=== PATIENT | male | born 1955 | race Caucasian/White ===

== ENCOUNTER 2017-03-19 12:56 | Observation (INO) | payer BC, OTHER ==
[2017-03-19] MEDS ORDERED: SODIUM CHLORIDE 1,000 ML IV STA (13:49)
[2017-03-19 14:17] LABS: BASOPHIL 1.5 % (0-2.0); EOSINOPHIL 0.9 % (0-4.5); MCH 28.7 pg (25.7-33.7); MCHC 31.3 g/dl (32.0-35.9); MEAN CELL VOLUME 91.7 fl (80-96); MEAN PLT VOLUME 9.1 fl (7.5-11.1); NEUTROPHILS 71.2 % (42.8-82.8); PLATELET COUNT 286 K/MM3 (134-434); RDW 13.6 % (11.9-15.9); WHITE BLOOD COUNT 7.2 K/mm3 (4.0-10.0)
--- NOTE | 2017-03-19 14:31 | EKG ---
Test Reason : Blood Pressure : / mmHG Vent. Rate : 084 BPM Atrial Rate : 084 BPM P-R Int : 158 ms QRS Dur : 092 ms QT Int : 358 ms P-R-T Axes : 033 -16 017 degrees QTc Int : 423 ms NORMAL SINUS RHYTHM BASE LINE ARTIFACTS NORMAL ECG WHEN COMPARED WITH ECG OF 28-AUG-1999 15:02, NO SIGNIFICANT CHANGE WAS FOUND REPEAT EKG IF CLINICALLY INDICATED Confirmed by SHEEBA JANSEN MD ([id number]) on 03/19/2017 2:31:25 PM Referred By: Confirmed By:SHEEBA JANSEN MD
[2017-03-19 14:34] LABS: INR 1.06 (0.82-1.09); PROTHROMBIN TIME (PATIENT) 11.7 SEC (9.98-11.88)
--- NOTE | 2017-03-19 14:45 | PDOC ---
History of Present Illness - General Chief Complaint: Rectal Bleed Stated Complaint: RECTAL BLEEDING Time Seen by Provider: 03/19/17 13:35 History Source: Patient Exam Limitations: No Limitations - History of Present Illness Travel History: No Initial Comments: 03/19/17 14:00 61-year-old male presents to the ED with complaints of generalized weakness, mild dizziness and shortness of breath since this morning. Patient states had a colonoscopy done yesterday by Dr. Stinson secondary to rectal bleeding which she was told he had hemorrhoid that required banding and will be removed at a later date once patient stabilizes from his low H&H and symptoms. As the patient Dr. Houston patient's PCP told him to come to the ER for further evaluation since his H&H was at 7 Which which has decreased over the past 2 months from 11 Timing/Duration: reports: intermittent Quality: reports: moderate Aggravating Factors: improves with: None Alleviating Factors: improves with: None Past History - Travel Traveled outside of the country in the last 30 days: No - Past Medical History Allergies/Adverse Reactions: Allergies Allergy/AdvReac Type Severity Reaction Status Date / Time No Known Allergies Allergy Verified 03/19/17 14:13 Home Medications: Ambulatory Orders Bimatoprost [Lumigan] 1 drop IO DAILY 03/19/17 Candesartan Cilexetil [Atacand (Nf) -] 8 mg PO DAILY 03/19/17 Folic Acid - 1 mg PO DAILY 03/19/17 Pantoprazole Sodium [Protonix] 40 mg PO HS 03/19/17 Asthma: Yes GI Disorders: Yes (GERD) HTN: Yes - Surgical History Abdominal Surgery: Yes (Left ingunal Hernia Repair) - Immunization History Immunization Up to Date: Yes - Suicide/Smoking/Psychosocial Hx Smoking History: Former smoker Have you smoked in the past 12 months: No If you are a former smoker, when did you quit?: 33years Information on smoking cessation initiated: Yes Hx Alcohol Use: No Drug/Substance Use Hx: No Substance Use Type: None Patient Lives Alone: No Lives with/in: spouse/SO Review of Systems - Review of Systems Able to Perform ROS?: Yes Constitutional: Yes: Weakness HEENTM: No: Symptoms Reported Respiratory: No: Symptoms reported Cardiac (ROS): Yes: Lightheadedness ABD/GI: No: Symptoms Reported : No: Symptoms Reported Musculoskeletal: No: Symptoms Reported Integumentary: No: Symptoms Reported Neurological: Yes: Weakness, Dizziness Hematologic/Lymphatic: No: Symptoms Reported *Physical Exam - Vital Signs Last Vital Signs Temp Pulse Resp BP Pulse Ox 98.8 F 100 H 16 130/74 98 03/19/17 13:09 03/19/17 13:09 03/19/17 13:09 03/19/17 13:09 03/19/17 13:09 - Physical Exam General Appearance: Yes: Nourished, Appropriately Dressed. No: Apparent Distress HEENT: positive: EOMI, MARGARITA. negative: Pale Conjunctivae Neck: positive: Supple Respiratory/Chest: positive: Lungs Clear, Normal Breath Sounds. negative: Respiratory Distress, Accessory Muscle Use Cardiovascular: positive: Regular Rhythm, Tachycardia. negative: Murmur Gastrointestinal/Abdominal: positive: Normal Bowel Sounds, Soft. negative: Distended, Tenderness Rectal Exam: positive: other (brown stool on withdrawn glove) Extremity: positive: Normal Capillary Refill Integumentary: positive: Dry, Warm, Pale Neurologic: positive: Normal Mood/Affect, Motor Strength 5/5 (ambulatory) Heart Score/ECG Review - ECG Intrepretation Rhythm: Regular Rhythm (rate 84, nsr) ED Treatment Course - LABORATORY CBC & Chemistry Diagram: 03/19/17 14:08 03/19/17 14:08 - ADDITIONAL ORDERS Additional order review: Laboratory Results 03/19/17 14:08 Stool Occult Blood Negative 03/19/17 14:08 RBC 3.11 L MCV 91.7 MCHC 31.3 L RDW 13.6 MPV 9.1 Neutrophils % 71.2 Lymphocytes % 16.2 Monocytes % 10.2 Eosinophils % 0.9 Basophils % 1.5 Medical Decision Making - Medical Decision Making 03/19/17 14:05 Patient here for symptomatic anemia. Patient's last recorded H&H was [address] Oleary who sent patient in for evaluation. Patient status post colonoscopy yesterday done by Dr. Stinson. Patient exam appears pale slightly tachycardic and weak. Patient ordered for type and screen, coags labs IV fluids and EKG. 03/19/17 14:47 Laboratory Tests 03/19/17 03/19/17 14:08 14:08 WBC 7.2 Hgb 8.9 L Hct 28.5 L Plt Count 286 Neutrophils % 71.2 Stool Occult Blood Negative 03/19/17 15:[address] Houston who wants patient to be admitted for observation and to receive 1 unit of blood and to consult Dr. Stinson. He states will text Dr. farr for admission 03/19/17 15:37 Laboratory Tests 03/19/17 03/19/17 14:08 14:08 Sodium 140 Potassium 4.2 Chloride 106 Carbon Dioxide 24 Anion Gap 10 BUN 12 Creatinine 1.3 Random Glucose 112 H Calcium 9.1 Total Bilirubin 0.2 AST 11 L ALT 23 Alkaline Phosphatase 102 Total Protein 7.2 Albumin 4.1 Stool Occult Blood Negative *DC/Admit/Observation/Transfer Diagnosis at time of Disposition: Secondary anemia - Discharge Dispostion Admit: Yes
[2017-03-19 14:47] LABS: ALBUMIN 4.1 g/dl (3.4-5.0); ANION GAP 10 (8-16); BILIRUBIN,TOTAL 0.2 mg/dL (0.2-1.0); CALCIUM 9.1 mg/dL (8.5-10.1); CO2 24 mmol/L (21-32); CREATININE 1.3 mg/dL (0.7-1.3); GLUCOSE,RANDOM 112 mg/dL (74-106); SGOT/AST 11 U/L (15-37); SGPT/ALT 23 U/L (12-78)
[2017-03-19 14:48] LABS: ALK PHOS 102 U/L (45-117); TOT PROT 7.2 g/dl (6.4-8.2)
[2017-03-19] MEDS ORDERED: ONDANSETRON 4 MG/2 ML VIAL IVPB PRN (16:32)
[2017-03-19] MEDS ORDERED: ACETAMINOPHEN 325 MG TABLET (FP) PO PRN (16:32)
--- NOTE | 2017-03-19 16:41 | HP ---
Admitting History and Physical - Primary Care Physician PCP: John Houston - Admission Chief Complaint: My hemoglobin was low History of Present Illness: Mr Hirsch is a pleasant 61 year old male who comes in after having recurrent bright red blood per rectum. His Hgb is normally between 11-12, however over the past 3 weeks he had bleeding with bowel movements. He underwent colonoscopy with Dr Stinson yesterday and was found to have a large internal hemorrhoid. He was planning on having it banded in 4 weeks after his hemoglobin increased with iron supplementation. However he got up this morning and had a large amount of bleeding with clots. He was lightheaded without passing out. He had some shortness of breath with this. He had generalized weakness and fatigue. He denies fevers, chills, chest pain, abdominal pain, nausea, vomiting, difficulty or pain on urination, or swelling. He is still feeling very fatigued. History Source: Patient Limitations to Obtaining History: No Limitations - Past Medical History Cardiovascular: Yes: HTN Gastrointestinal: Yes: GERD Additional Past Medical History: glaucoma - Past Surgical History Past Surgical History: Yes: Hernia Repair - Smoking History Smoking history: Former smoker Have you smoked in the past 12 months: No If you are a former smoker, when did you quit?: 33years - Alcohol/Substance Use Hx Alcohol Use: No History of Substance Use: reports: None - Social History Usual Living Arrangement: Yes: With Spouse ADL: Independent History of Recent Travel: No Home Medications - Allergies Allergies/Adverse Reactions: Allergies Allergy/AdvReac Type Severity Reaction Status Date / Time No Known Allergies Allergy Verified 03/19/17 14:13 - Home Medications Home Medications: Ambulatory Orders Bimatoprost [Lumigan] 1 drop IO DAILY 03/19/17 Candesartan Cilexetil [Atacand (Nf) -] 8 mg PO DAILY 03/19/17 Folic Acid - 1 mg PO DAILY 03/19/17 Pantoprazole Sodium [Protonix] 40 mg PO HS 03/19/17 Family Disease History - Family Disease History Family Disease History: CA: Father (prostate cancer), Other: Mother ( at age 93) Review of Systems Findings/Remarks: Full review of systems obtained, as per HPI and otherwise negative Physical Examination Vital Signs: Vital Signs Temperature 37.1 C 03/19/17 13:09 Pulse Rate 100 H 03/19/17 13:09 Respiratory Rate 16 03/19/17 13:09 Blood Pressure 130/74 03/19/17 13:09 O2 Sat by Pulse Oximetry (%) 98 03/19/17 13:09 Constitutional: Yes: Well Nourished, No Distress, Calm Eyes: Yes: Conjunctiva Clear, EOM Intact, PERRL Cardiovascular: Yes: Tachycardia. No: Gallop, Murmur, Rub Respiratory: Yes: Regular, CTA Bilaterally. No: Rales, Rhonchi, Wheezes Gastrointestinal: Yes: Normal Bowel Sounds, Soft. No: Distention, Tenderness Extremities: Yes: WNL Edema: No Labs: Laboratory Results - last 24 hr 03/19/17 03/19/17 03/19/17 13:48 14:08 14:08 WBC 7.2 RBC 3.11 L Hgb 8.9 L Hct 28.5 L MCV 91.7 MCH 28.7 MCHC 31.3 L RDW 13.6 Plt Count 286 MPV 9.1 Neutrophils % 71.2 Lymphocytes % 16.2 Monocytes % 10.2 Eosinophils % 0.9 Basophils % 1.5 PT with INR 11.70 INR 1.06 Sodium Potassium Chloride Carbon Dioxide Anion Gap BUN Creatinine Creat Clearance w eGFR Random Glucose Calcium Total Bilirubin AST ALT Alkaline Phosphatase Total Protein Albumin Stool Occult Blood Blood Type O POSITIVE Antibody Screen Negative Crossmatch See Detail 03/19/17 03/19/17 14:08 14:08 WBC RBC Hgb Hct MCV MCH MCHC RDW Plt Count MPV Neutrophils % Lymphocytes % Monocytes % Eosinophils % Basophils % PT with INR INR Sodium 140 Potassium 4.2 Chloride 106 Carbon Dioxide 24 Anion Gap 10 BUN 12 Creatinine 1.3 Creat Clearance w eGFR 55.94 Random Glucose 112 H Calcium 9.1 Total Bilirubin 0.2 AST 11 L ALT 23 Alkaline Phosphatase 102 Total Protein 7.2 Albumin 4.1 Stool Occult Blood Negative Blood Type Antibody Screen Crossmatch Problem List - Problems (1) Symptomatic anemia Assessment/Plan: -secondary to acute blood loss anemia -admit under observation -transfuse 1 unit -recheck in am Code(s): D64.9 - ANEMIA, UNSPECIFIED (2) GI bleed Assessment/Plan: -secondary to hemorrhoidal bleed -GI to evaluate Code(s): K92.2 - GASTROINTESTINAL HEMORRHAGE, UNSPECIFIED (3) HTN (hypertension) Assessment/Plan: -continue atacand (or formulary substitution) -monitor Code(s): I10 - ESSENTIAL (PRIMARY) HYPERTENSION (4) GERD (gastroesophageal reflux disease) Assessment/Plan: -continue protonix Code(s): K21.9 - GASTRO-ESOPHAGEAL REFLUX DISEASE WITHOUT ESOPHAGITIS (5) Glaucoma Assessment/Plan: -continue lumigan Code(s): H40.9 - UNSPECIFIED GLAUCOMA
[2017-03-19 21:16] VITALS: BMI 36.5
[2017-03-19] MEDS: DOCUSATE SODIUM 100 MG CAPSULE (FP) PO SCH (21:27)
[2017-03-19] MEDS ORDERED: PANTOPRAZOLE 40 MG TABLET (FP) PO SCH (22:00)
[2017-03-20 08:10] LABS: BASOPHIL 0.7 % (0-2.0); EOSINOPHIL 2.3 % (0-4.5); MCH 29.2 pg (25.7-33.7); MCHC 32.5 g/dl (32.0-35.9); MEAN CELL VOLUME 90.1 fl (80-96); MEAN PLT VOLUME 9.1 fl (7.5-11.1); NEUTROPHILS 66.8 % (42.8-82.8); PLATELET COUNT 220 K/MM3 (134-434); RDW 13.6 % (11.9-15.9); WHITE BLOOD COUNT 5.5 K/mm3 (4.0-10.0)
[2017-03-20 08:38] LABS: ANION GAP 8 (8-16); CALCIUM 8.8 mg/dL (8.5-10.1); CO2 26 mmol/L (21-32); CREATININE 1.3 mg/dL (0.7-1.3); GLUCOSE,RANDOM 103 mg/dL (74-106); MAGNESIUM 2.1 mg/dL (1.8-2.4)
[2017-03-20] MEDS ORDERED: POLYETHYLENE GLYCOL 3350 119 GM BTL PO SCH (10:00)
[2017-03-20] MEDS ORDERED: CANDESARTAN CILEXETIL 8 MG PO SCH (10:00)
[2017-03-20] MEDS ORDERED: PATIENT'S OWN MEDICATION (NON-FORMULARY) (Bimatoprost [Lumigan] 1 DROP) IO SCH (10:00)
[2017-03-20] MEDS ORDERED: VALSARTAN 80 MG TABLET (UD) PO SCH (10:00)
[2017-03-20] MEDS: DOCUSATE SODIUM 100 MG CAPSULE (FP) PO SCH ×2 (10:50→10:55)
[2017-03-20] MEDS: FOLIC ACID 1 MG TABLET (FP) PO SCH ×2 (10:53→10:55)
--- NOTE | 2017-03-20 12:02 | DS ---
Physical Examination Vital Signs: Vital Signs Temperature 36.6 C 03/20/17 06:00 Pulse Rate 69 03/20/17 06:00 Respiratory Rate 16 03/20/17 06:00 Blood Pressure 136/78 03/20/17 06:00 O2 Sat by Pulse Oximetry (%) 96 03/20/17 00:35 Labs: CBC, BMP 03/20/17 06:30 03/20/17 06:30 Discharge Summary Reason For Visit: SECONDARY ANEMIA Current Active Problems GERD (gastroesophageal reflux disease) (Acute) GI bleed (Acute) Glaucoma (Acute) HTN (hypertension) (Acute) Symptomatic anemia (Acute) Condition: Good - Instructions Diet, Activity, Other Instructions: resume previous diet and activity Referrals: John Houston MD [Primary Care Provider] - Yogi Stinson MD [Staff Physician] - Disposition: HOME - Home Medications Comprehensive Discharge Medication List: Ambulatory Orders Bimatoprost [Lumigan] 1 drop IO DAILY 03/19/17 Candesartan Cilexetil [Atacand -] 8 mg PO DAILY 03/19/17 Folic Acid - 1 mg PO DAILY 03/19/17 Pantoprazole Sodium [Protonix] 40 mg PO HS 03/19/17
--- NOTE | 2017-03-20 15:49 | CON.GI ---
Consult Consult Specialty:: GI for Dr. Torres Referred by:: Dr. Lazo Reason for Consultation:: Rectal bleeding - History of Present Illness Chief Complaint: I was having rectal bleeding History of Present Illness: 61M addmitted for evaluation of rectal bleeding. He had a colonoscopy with Dr. Torres this past saturday and was advised that he has a large internal hemorrhoid. He alludes to Dr. torres telling him that he wanted to perform hemorrhoidal banding once his h/h improved. He has a history of anemia as well. He came to the ER last night because he again experienced rectal bleeding after a bowel movement and felt diaphoretic. He was given 1 U PRBC. Hgb last night was 8.9 and [address] Torres's office note alludes to Mr. Rooney having a recent Hgb of 7.8 with elevated MCV of 94. The last episode of bleeding was this morning, muuch kess than previously noted and always described as bright red. there is no passage of clots and he sometimes feels the hemorrhoids "come out" requiring him to "sit on something hard to push them back in". He denies abdominal pain, neausea, vomiting, current lightheadedness / shortness of breath / chest pain. - History Source History Provided By: Patient, Family Member, Medical Record Limitations to Obtaining History: No Limitations - Past Medical History Cardio/Vascular: Yes: HTN Pulmonary: Yes: Asthma, Bronchitis Gastrointestinal: Yes: GERD, GI Bleed, Hemorrhoids, Other (anal fissure, ) Additional Medical History: macular degeneration, churg-sondra vasculitis, herniated disc - Past Surgical History Past Surgical History: Yes: Hernia Repair (LIH repair) Additional Surgical History: left retinal tear, chalazion removal - Alcohol/Substance Use Hx Alcohol Use: No History of Substance Use: reports: None - Smoking History Smoking history: Former smoker Have you smoked in the past 12 months: No If you are a former smoker, when did you quit?: 33years - Social History ADL: Independent Occupation: retired [employer] Place of : [facility] History of Recent Travel: No Home Medications - Allergies Allergies/Adverse Reactions: Allergies Allergy/AdvReac Type Severity Reaction Status Date / Time No Known Allergies Allergy Verified 03/19/17 14:13 - Home Medications Home Medications: Ambulatory Orders Bimatoprost [Lumigan] 1 drop IO DAILY 03/19/17 Candesartan Cilexetil [Atacand -] 8 mg PO DAILY 03/19/17 Folic Acid - 1 mg PO DAILY 03/19/17 Pantoprazole Sodium [Protonix] 40 mg PO HS 03/19/17 Family Disease History - Family Disease History Family Disease History: CA: Father (prostate cancer), Other: Mother ( at age 93) Other Family History: Maternal uncle: liver cancer, maternal aunt: colon cancer , maternal aunt: stomach cancer, paternal uncle: pancreatic cancer Review of Systems - Review of Systems Constitutional: denies: Fever Cardiovascular: denies: Chest Pain, Shortness of Breath Gastrointestinal: denies: Abdominal Pain, Constipation, Diarrhea Physical Exam-GI Vital Signs: Vital Signs Temperature 98.1 F 03/20/17 14:00 Pulse Rate 74 03/20/17 14:00 Respiratory Rate 22 03/20/17 14:00 Blood Pressure 100/60 03/20/17 14:00 O2 Sat by Pulse Oximetry (%) 96 03/20/17 08:00 Constitutional: Yes: Calm Eyes: No: Sclera Icterus Cardiovascular: Yes: Regular Rate and Rhythm. No: Murmur Respiratory: Yes: CTA Bilaterally Gastrointestinal Inspection: No: Distention ...Auscultate: Yes: Normoactive Bowel Sounds ...Palpate: No: Hepatomegaly, Splenomegaly, Tenderness ...Percussion: No: Tympanitic ...Rectal Exam: Yes: Other (+ internal hemorrhoids, no blood / stool) Edema: No Neurological: Yes: Alert, Oriented Labs: CBC, BMP 03/20/17 06:30 03/20/17 06:30 INR, PTT INR 1.06 (0.82-1.09) 03/19/17 14:08 Hepatic Panel Total Bilirubin 0.2 mg/dL (0.2-1.0) 03/19/17 14:08 AST 11 U/L (15-37) L 03/19/17 14:08 ALT 23 U/L (12-78) 03/19/17 14:08 Alkaline Phosphatase 102 U/L (45-117) 03/19/17 14:08 Albumin 4.1 g/dl (3.4-5.0) 03/19/17 14:08 Problem List - Problems (1) GI bleed Assessment/Plan: Rectal bleeding: suspect to be internal hemorrhoid in nature without overt bleeding currently No severe tenderness upon insertion of finger into anal canal that would be suggestive of significant anal fissure Advised the following: Anusol HC suppository 1 NV daily to twice daily Stool softener as needed as opposed to standing as Mr. Rooney denies any persistent constipation Advised Mr. rooney and his to call Dr. Torres's office to arrange follow-up to discuss further treatment of hemorrhoids ? previous macrocytic component of anemia as well. ? alternate concomitant hematologic process If persistent worsened rectal bleeding that he seek evaluation in ER setting Code(s): K92.2 - GASTROINTESTINAL HEMORRHAGE, UNSPECIFIED
[2017-03-20] MEDS ORDERED: HYDROCORTISONE ACETATE 25 MG/SUPP.RECT RC ONE (16:30)
[2017-03-20 17:49] VITALS: BP 101/58; PULSE 71; TEMP 98.5
[2017-03-20] MEDS ORDERED: HYDROCORTISONE ACETATE 25 MG/SUPP.RECT PR SCH (22:00)
== END 2017-03-20 18:10 | disposition home or self-care (01) ==
LOC: JER 12:56 → JERBED 15:41 → J6S 20:40
PROVIDERS: ADMIT Internal Medicine; ATTEND Internal Medicine
PROC: 30233N1 Transfusion of Nonautologous Red Blood Cells into Peripheral Vein, Percutaneous Approach (ICD-10-PCS; principal; 2017-03-19)
PROC: 3E0337Z Introduction of Electrolytic and Water Balance Substance into Peripheral Vein, Percutaneous Approach (ICD-10-PCS; 2017-03-19)
DX: D64.9 Anemia, unspecified (principal); K92.2 Gastrointestinal hemorrhage, unspecified; I10 Essential (primary) hypertension; K21.9 Gastro-esophageal reflux disease without esophagitis; J45.909 Unspecified asthma, uncomplicated; H40.9 Unspecified glaucoma; Z87.891 Personal history of nicotine dependence; K64.8 Other hemorrhoids
CPT/HCPCS: 36415; 36430; 80048; 80053; 82272; 83735; 84100; 85025; 85610; 86850; 86900; 86901; 86922; 93005; 93010; 99285-25; G0378; P9038; P9058

== ENCOUNTER 2017-04-03 13:18 | Day surgery (SDC) | payer BC ==
[2017-04-03] MEDS ORDERED: PROPOFOL 20 ML ONE ×2 (13:44)
[2017-04-03] MEDS ORDERED: LIDOCAINE HCL/PF 2% SDV 5ML VIAL ONE (13:44)
[2017-04-03 13:46] VITALS: BMI 36.8
[2017-04-03] MEDS ORDERED: LIDOCAINE HCL 2% JELLY 10 ML CARTRIDGE ONE (14:13)
[2017-04-03 15:06] VITALS: TEMP 98.1
[2017-04-03 15:35] VITALS: BP 116/61; PULSE 67
== END 2017-04-03 15:59 | disposition home or self-care (01) ==
LOC: JASU-ENDO 13:18
PROVIDERS: ATTEND Internal Medicine Gastroenterology
PROC: 06LY4CC Occlusion of Hemorrhoidal Plexus with Extraluminal Device, Percutaneous Endoscopic Approach (ICD-10-PCS; principal; 2017-04-03 14:00)
DX: K64.8 Other hemorrhoids (principal)

== ENCOUNTER 2017-05-07 09:41 | Day surgery (SDC) | payer BC ==
[2017-05-07 10:09] VITALS: BMI 36.8
[2017-05-07] MEDS ORDERED: PROPOFOL 20 ML ONE ×2 (10:41)
[2017-05-07] MEDS ORDERED: KETOROLAC TROMETHAMINE 30 MG/1 ML VIAL ONE (11:03)
[2017-05-07] MEDS ORDERED: LIDOCAINE HCL 2% JELLY 10 ML CARTRIDGE ONE (11:06)
[2017-05-07] MEDS ORDERED: LIDOCAINE HCL 2% JELLY 10 ML CARTRIDGE TP ONE (11:14)
[2017-05-07 14:44] VITALS: BP 128/62; PULSE 74; TEMP 99.1
== END 2017-05-07 14:35 | disposition home or self-care (01) ==
LOC: JASU-ENDO 09:41
PROVIDERS: ATTEND Internal Medicine Gastroenterology
PROC: 06LY4CC Occlusion of Hemorrhoidal Plexus with Extraluminal Device, Percutaneous Endoscopic Approach (ICD-10-PCS; principal; 2017-05-07 10:30)
DX: K64.8 Other hemorrhoids (principal)